=== PATIENT | female | born 1975 | race Caucasian/White ===

== ENCOUNTER 2023-08-31 23:58 | Emergency (ER) | payer BC ==
[2023-09-01 00:06] VITALS: RESP 18; TEMP 97.9; BMI 23.8
[2023-09-01] MEDS: DEXAMETHASONE SOD PHOSPHATE 10 MG/1 ML VIAL IM ONE (00:11)
[2023-09-01] MEDS: FAMOTIDINE 20 MG TABLET PO ONE (00:12)
[2023-09-01 00:38] VITALS: BP 135/90; PULSE 80
== END 2023-09-01 00:41 | disposition home or self-care (01) ==
LOC: FER 23:58
PROC: 3E023GC Introduction of Other Therapeutic Substance into Muscle, Percutaneous Approach (ICD-10-PCS; principal; 2023-09-01)
DX: L50.9 Urticaria, unspecified (principal); R00.0 Tachycardia, unspecified
CPT/HCPCS: 99284-25; J1100